=== PATIENT | female | born 1995 ===

== ENCOUNTER 2020-12-25 00:33 | Emergency (ER) | payer SELFPAY ==
--- NOTE | 2020-12-25 01:34 | Emergency Department Report ---
ED Female HPI - General Chief complaint: Vaginal Bleeding Stated complaint: VAGINAL BLEEDING Time Seen by Provider: 12/25/20 01:33 Source: patient Mode of arrival: Ambulatory Limitations: No Limitations - History of Present Illness Initial comments: 25-year-old [facility] emergency department complaining of being of unknown duration and having some vaginal bleeding and cramping for the last 5 hours to the lower abdomen and suprapubic area with vomiting x1. MD Complaint: vaginal bleeding Quality: cramping, dull Consistency: constant Improves with: none Worsens with: none Are you Now?: Yes - Related Data Allergies Allergy/AdvReac Type Severity Reaction Status Date / Time No Known Allergies Allergy Unverified 12/25/20 01:06 ED Review of Systems ROS: Stated complaint: VAGINAL BLEEDING Other details as noted in HPI Comment: All other systems reviewed and negative ED Physical Exam - General Limitations: No Limitations General appearance: alert, in no apparent distress - Head Head exam: Present: atraumatic, normocephalic - Eye Eye exam: Present: normal appearance - ENT ENT exam: Present: mucous membranes moist - Neck Neck exam: Present: normal inspection - Respiratory Respiratory exam: Present: normal lung sounds bilaterally. Absent: respiratory distress - Cardiovascular Cardiovascular Exam: Present: regular rate, normal rhythm. Absent: systolic murmur, diastolic murmur, rubs, gallop - GI/Abdominal GI/Abdominal exam: Present: soft, tenderness (Suprapubic region), normal bowel sounds - Extremities Exam Extremities exam: Present: normal inspection - Back Exam Back exam: Present: normal inspection - Neurological Exam Neurological exam: Present: alert, oriented X3 - Psychiatric Psychiatric exam: Present: normal affect, normal mood - Skin Skin exam: Present: warm, dry, intact, normal color. Absent: rash ED Medical Decision Making - Lab Data Result diagrams: 12/25/20 01:42 - Radiology Data Radiology results: report reviewed [facility] [address] [place] [address] Ultrasound Report Signed Patient: AMI ELLIOTT MR#: [id number] : 1995 Acct:[id number] Age/Sex: 25 / F ADM Date: 12/25/20 Loc: ED Attending Dr: Ordering Physician: ZHANE WILDE Date of Service: 12/25/20 Procedure(s): US OB <= 14 weeks fetus Accession Number(s): [id number] cc: ZHANE WILDE US OB <= 14 WEEKS FETUS, US OB TRANSVAGINAL INDICATION / CLINICAL INFORMATION: Vaginal bleeding pain. COMPARISON: None available. FINDINGS: Endometrial echo complex is thickened at 3.3 cm. No intrauterine gestational sac/ is seen. Right ovary contains a 2.2 cm cyst which may be a corpus luteal cyst. There is flow to the right ovary. The left ovary is not visualized. No adnexal lesions. There is scant free fluid in the cul-de-sac. IMPRESSION: 1. No sonographic evidence of intrauterine . No adnexal lesions. 2. Endometrial echo complex is thickened at 3.3 cm. Signer Name: Tj Stokes MD Signed: 12/25/2020 4:33 AM Workstation Name: [id number] Transcribed By: YONATAN Dictated By: Tj Stokes MD Electronically Authenticated By: Tj Stokes MD Signed Date/Time: 12/25/20432 DD/ 0 TD/TT: - Medical Decision Making This patient presents with vaginal bleeding in the first trimester, differential diagnosis includes ectopic , IUP, month threatened/inevitable , along with a completed . Patient is HDS and without a history of coagulopathy or infectious symptoms. The ultrasound does not reveal an IUP although the hCG quant is elevated Based on exam history and ED work-up patient presentation is not consistent with an ectopic , life-threatening coagulopathy, trauma, serious bacterial infection, central process or other emergency Critical care attestation.: If time is entered above; I have spent that time in minutes in the direct care of this critically ill patient, excluding procedure time. ED Disposition Clinical Impression: Spontaneous miscarriage Disposition: HOME / SELF CARE / HOMELESS Is pt being admited?: No Does the pt Need Aspirin: No Condition: Stable Instructions: Miscarriage, [id number] Additional Instructions: She evaluate emergency department today for vaginal bleeding in . hCG quant which were in the range of of at least 67 weeks however no found on ultrasound. Ovarian cyst was incidentally seen she to follow-up with your [facility] further evaluation and treatment at this present time take your vitamins and use Tylenol as needed for pain Referrals: [facility] [Provider Group] - 3-5 Days
[2020-12-25 02:09] LABS: Basophils % (Auto) 0.3 % (0.0-1.8); Eosinophils # (Auto) 0.1 K/mm3 (0.0-0.4); Eosinophils % (Auto) 0.6 % (0.0-4.3); Hemoglobin 12.4 gm/dl (10.1-14.3); Lymphocytes # (Auto) 1.7 K/mm3 (1.2-5.4); Lymphocytes % (Auto) 15.2 % (13.4-35.0); Monocytes # (Auto) 0.8 K/mm3 (0.0-0.8); Monocytes % (Auto) 6.8 % (0.0-7.3)
[2020-12-25 02:12] LABS: Hematocrit 37.7 % (30.3-42.9); Mean Corpuscular HGB Conc 33 % (30-34); Mean Corpuscular Volume 83 fl (79-97); Platelet Count 237 K/mm3 (140-440); Red Blood Count 4.56 M/mm3 (3.65-5.03); Red Cell Distribution Width 15.1 % (13.2-15.2)
--- NOTE | 2020-12-25 04:37 | Ultrasound Report ---
US OB <= 14 WEEKS FETUS, US OB TRANSVAGINAL INDICATION / CLINICAL INFORMATION: Vaginal bleeding pain. COMPARISON: None available. FINDINGS: Endometrial echo complex is thickened at 3.3 cm. No intrauterine gestational sac/ is seen. Right ovary contains a 2.2 cm cyst which may be a corpus luteal cyst. There is flow to the right ovar y. The left ovary is not visualized. No adnexal lesions. There is scant free fluid in the cul-de-sac. IMPRESSION: 1. No sonographic evidence of intrauterine . No adnexal lesions. 2. Endometrial echo complex is thickened at 3.3 cm. Signer Name: Tj Stokes MD Signed: 12/25/2020 4:33 AM Workstation Name: [id number]
== END 2020-12-25 05:18 | disposition home or self-care (01) ==
LOC: ED 00:33
DX: O03.9 Complete or unspecified spontaneous abortion without complication (principal)
CPT/HCPCS: 36415; 76801; 76817; 84702; 85025; 86900; 86901; 99283